=== PATIENT | female | born 1990 | race Caucasian/White ===

== ENCOUNTER 2024-06-07 13:21 | Emergency (ER) | payer OTHER, SELFPAY ==
[2024-06-07 13:31] VITALS: BP 122/85; PULSE 76; RESP 16; TEMP 36.6; O2SAT 99; BMI 23.7
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
--- NOTE | 2024-06-07 13:53 | PC.NURSE ---
Pt received 4mg zofran and 15mg toradol in route via IV by EMS. Pt refused narcotics due to .
[2024-06-07 14:51] VITALS: BP 127/91; PULSE 81
[2024-06-07] MEDS: lidocaine 1% 10 ML INJ INJECTION (16:26)
[2024-06-07 17:12] VITALS: BP 117/83; PULSE 73; O2SAT 98
== END 2024-06-07 17:16 | disposition home or self-care (01) ==
PROVIDERS: Emergency Provider Emergency Medicine
DX: S01.81XA Laceration without foreign body of other part of head, initial encounter (principal); V89.2XXA Person injured in unspecified motor-vehicle accident, traffic, initial encounter
CPT/HCPCS: 12013; 70450; 70486; 72125; 99284